=== PATIENT | female | born 1950 | race African-American/Black ===

== ENCOUNTER 2019-05-14 12:51 | Observation (INO) ==
[2019-05-14] MEDS ORDERED: LORazepam 2 MG/ML DISP.SYRIN IV ONE ×3 (12:53→13:07)
[2019-05-14] MEDS ORDERED: NORMAL SALINE 1,000 ML IV ONE (13:00)
[2019-05-14] MEDS ORDERED: LEVETIRACETAM IV ONE ×2 (13:04→13:15)
[2019-05-14] MEDS ORDERED: NORMAL SALINE IV ONE ×2 (13:04→13:15)
--- NOTE | 2019-05-14 13:08 | ERNOTE ---
Neuro HPI ER Record Date of Service: 05/14/19 Presenting Symptoms: other Time Seen by Provider: 05/14/19 12:51 Source: EMS Exam Limitations: clinical condition Immunizations: IMMUNIZATION HX Immunizations Up to Date Yes Allergies/Adverse Reactions: Allergies Allergy/AdvReac Type Severity Reaction Status Date / Time No Known Allergies Allergy Verified 05/14/19 16:21 Home Medications: HOME MEDICATIONS acetaminophen 325 mg tablet 650 mg PO Q4H PRN tab 04/30/19 [Last Taken Unknown] aspirin 81 mg chewable tablet 81 mg PO DAILY 04/30/19 [Last Taken Unknown] escitalopram oxalate 5 mg tablet 5 mg PO DAILY 04/30/19 [Last Taken Unknown] famotidine 20 mg tablet 20 mg PO BID 04/30/19 [Last Taken Unknown] folic acid 1 mg tablet 1 mg PO DAILY 04/30/19 [Last Taken Unknown] insulin glargine 100 unit/mL subcutaneous solution 9 unit SUBCUT QPM ml 04/30/19 [Last Taken Unknown] insulin lispro 100 unit/mL subcutaneous solution See Protocol SUBCUT ACHS PRN ml 04/30/19 [Last Taken Unknown] levetiracetam 750 mg tablet 1,500 mg PO BID tab 04/30/19 [Last Taken Unknown] lisinopril 10 mg tablet 10 mg PO DAILY 04/30/19 [Last Taken Unknown] phenol 1.4 % mucosal aerosol spray 4 spray MUCOUS MEMBRANE Q4H PRN 04/30/19 [Last Taken Unknown] polyethylene glycol 3350 17 gram oral powder packet 17 g PO DAILY PRN 04/30/19 [Last Taken Unknown] thiamine HCl (vitamin B1) 50 mg tablet 50 mg PO DAILY 04/30/19 [Last Taken Unknown] trazodone 50 mg tablet 25 mg PO HS #30 tab 04/30/19 [Last Taken Unknown] sodium chloride 0.65 % nasal spray aerosol 1 spray SILVERIO BID PRN #15 ml 05/03/19 [Last Taken Unknown] - History of Present Illness Narrative: This patient is a 69-year-old female who arrived by ambulance from [facility] of the nursing homes. The initial call was a stroke. It sounds more like she is having seizures. She has had a stroke in the past and has a chronic left-sided residual. Apparently around 11 AM, she was noted to be having fixed gaze and leaning to the left. It sounds like she was having some jerking movements. When the paramedics arrived, she appeared to be having seizures. She received Valium 5 mg in route with improvement. She was noted to have some jerking on arrival. Review of Systems - Narrative Narrative: Unobtainable due to decreased level of responsiveness. Medical History (Last Reviewed 05/14/19 @ 13:41 by Marino Gilman MD) Altered mental status, unspecified Cardiomegaly Dementia Functional urinary incontinence Hyperlipemia Lack of coordination Muscle wasting and atrophy, not elsewhere classified, multiple sites Muscle weakness Osteoporosis Personal history of (healed) traumatic fracture Repeated falls Seizure TIA (transient ischemic attack) Type 2 diabetes mellitus Surgical History: Surgical History (Last Reviewed 05/14/19 @ 13:41 by Marino Gilman MD) Hx of brain surgery Family History: Family History (Last Reviewed 05/14/19 @ 16:20 by Gustavo Turner, RN) Other No pertinent family history Social History: (Last Reviewed 05/14/19 @ 16:20 by Gustavo Turner, RN) Social History: senior care: Yes senior care comment: [facility] Physical Exam - Physical Exam General Appearance: Present: other - Ensure she arrived on the cart. She had rhythmic movement of the left lower extremity and left neck. She was leaning to the left. She does not respond to verbal or painful stimuli. Head Exam: Present: normal inspection, no evidence of injury Ears, Nose, Throat: Present: normal ENT inspection Neck: Present: normal inspection, supple Respiratory: Present: no respiratory distress, normal breath sounds, lungs clear Cardiovascular/Chest: Present: no murmur, tachycardia Gastrointestinal/Abdominal: Present: soft, no organomegaly Extremity Exam: Present: other - No evidence of acute injury. Neurological Exam: Present: other - Ensure she arrived on the cart. She had rhythmic movement of the left lower extremity and left neck. She was leaning to the left. She does not respond to verbal or painful stimuli. DTR: N=norm/NB=norm/brisk/A=abs/DD=dull/dimin/HC=hyperactive: Knee (R): Normal, Knee (L): Absent Skin Exam: Present: normal color, warm/dry Progress - Date and Time Seen: Date and Time: 05/14/19 13:59 Seizure activity has resolved. 05/15/19 07:[address] and labs were back, I spoke with Dr. Hoover. She asked that I make sure the patient's family was okay with the patient being here where there is no neuro. The daughter came back at that time. We discussed admission here versus transferring the patient. She is said that since the patient had quit seizing and seems stable at this time, she would be okay with the patient staying here and did not want transfer. Dr. Hoover was then informed of that conversation and accepted the patient. - Results and Orders Patient's Lab Results:: I have reviewed the patient's lab results. Results and Orders: Laboratory Tests 05/14/19 13:48 WBC 8.0 RBC 4.80 Hgb 14.7 Hct 44.5 MCV 92.7 MCH 30.6 MCHC 33.0 RDW 11.9 Plt Count 169 MPV 10.2 Immature Gran % (Auto) 0.20 Immature Gran # (Auto) 0.02 Neutrophils % 61.9 Lymphocytes % 27.7 Monocytes % 8.2 Eosinophils % 1.5 Basophils % 0.5 Nucleated RBC % 0.0 Neutrophils # 5.0 Lymphocytes # 2.22 Monocytes # 0.7 Eosinophils # 0.1 Absolute Basophils 0.0 Laboratory Tests 05/14/19 05/14/19 13:48 13:48 WBC 8.0 Hgb 14.7 Hct 44.5 Plt Count 169 Sodium 138 Potassium 3.6 Chloride 104 Carbon Dioxide 28.3 Anion Gap 9.3 BUN 16 Creatinine 0.58 Est GFR (Non-Af Amer) 133 H D Random Glucose 133 H Calcium 9.6 Calcium Adj for Albumin 9.9 Total Bilirubin 0.6 AST 124 H ALT 108 H Alkaline Phosphatase 139 Total Protein 7.5 Albumin 3.2 L - Vital Signs Patient's Vital Signs:: I have reviewed the patient's vital signs. Vital Signs: Vital Signs 05/14/19 12:54 Temperature 36.3 C Pulse Rate 97 Respiratory Rate 15 Blood Pressure 118/81 O2 Sat by Pulse Oximetry 96 - X-Ray X-Ray #1 X-Ray: chest Interpretation: Reviewed by me X-ray Comments: Chest Single View *: Hypoinflated lungs. No definite consolidation. Pulmonary vasculature is normal. No pneumothorax or pleural fluid collections apparent. Cardiac size within normal limits. Mild tortuosity of the thoracic aorta, stable. Trachea is in normal position given patient positioning. Osseous structures are grossly intact. IMPRESSION: 1. Hypoventilatory changes. 2. No focal acute finding. Electronically signed by Lauren Boyle M.D.. - CT/Ultrasound CT/Ultrasound Narrative: CT Head W/O *: Age-related cortical atrophy and periventricular white matter chronic ischemic changes are present. Intracranial atherosclerotic calcifications noted. No acute intracranial hemorrhage. No midline shift or herniation. There is an area of encephalomalacia at the right parietal lobe, best seen on series 3 image 22, which remain stable. No obvious soft tissue swelling or scalp hematoma noted. Skull grossly intact, without signs of depressed skull fracture. Patient has surgical changes of likely a right frontal natty hole placement as well as right parietal/occipital region craniotomy. Visualized portions of the paranasal sinuses are clear. Mastoid air cells are grossly clear. IMPRESSION: 1. No acute intracranial hemorrhage or mass effect. 2. Additional comments as above. Electronically signed by Lauren Boyle M.D.. - Progress/Reassessment Chief Complaint: Seizure Activity Departure Clinical Impression: Status epilepticus - Departure Disposition: Still a patient Condition: Fair
[2019-05-14 13:50] LABS: Hematocrit 44.5 % (37.0-47.0); Hemoglobin 14.7 gm/dL (12.5-16.0); Mean Cell Volume 92.7 fl (78-100); Mean Corpuscular Hemoglobin 30.6 pg (27-31); Mean Platelet Volume 10.2 fl (8-12.5); Neutrophil % 61.9 % (42-75.0); Platelet Count 169 K/mm3 (150-450); Red Cell Distribution Width 11.9 % (11.5-14.0)
[2019-05-14 14:08] LABS: Albumin * 3.2 gm/dl (3.4-5.0); Anion Gap 9.3 mmol/L (6.8-13.8); BUN/Creatinine Ratio 27.6 (9.0-21.6); Bilirubin, Total 0.6 mg/dL (0.0-1.1); Ca. Corrected For Albumin 9.9 mg/dL (8.4-10.2); Calcium * 9.6 mg/dL (7.9-10.9); Carbon Dioxide 28.3 mmol/L (24-32.6); Potassium 3.6 mmol/L (3.4-4.6); Total Protein 7.5 gm/dL (6.2-8.2)
--- NOTE | 2019-05-14 16:18 | HP ---
Chief Complaint - Chief Complaint Date of Service: 05/14/19 Time of Service: 16:13 Chief Complaint: seizure History of Present Illness: Patient is not awake for exam. History obtained from ED notes and from her nurse at [facility]. She has been refusing meds and glucose checks, and did not take her keppra on 05/09 or 05/13. She seemed to be leaning to the left today, and was observed shaking. Staff there felt like her heart rate was irregular, and her pupils were fixed. In the ED, more seizure like activity was Medical History (Last Reviewed 05/14/19 @ 16:20 by Gustavo Turner, RN) Diabetes mellitus Dysphagia Epilepsy GERD (gastroesophageal reflux disease) Hx of hepatitis C Hx of primary hypertension Altered mental status, unspecified Cardiomegaly Dementia Functional urinary incontinence Hyperlipemia Lack of coordination Muscle wasting and atrophy, not elsewhere classified, multiple sites Muscle weakness Osteoporosis Personal history of (healed) traumatic fracture Repeated falls Seizure TIA (transient ischemic attack) Type 2 diabetes mellitus Surgical History: Surgical History (Last Reviewed 05/14/19 @ 16:20 by Gustavo Turner, SHANNA) Hx of brain surgery Family History: Family History (Last Reviewed 05/14/19 @ 16:20 by Gustavo Turner, RN) Other No pertinent family history Social History: (Last Reviewed 05/14/19 @ 16:20 by Gustavo Turner, RN) Social History: residential: Yes residential comment: [facility] Review Of Systems (GEN) - Review of Systems Additional Comments: Unable to obtain ROS due to patient's condition Immunizations: IMMUNIZATION HX Immunizations Up to Date Yes Allergies/Adverse Reactions: Allergies Allergy/AdvReac Type Severity Reaction Status Date / Time No Known Allergies Allergy Verified 05/14/19 16:21 Home Medications: HOME MEDICATIONS acetaminophen 325 mg tablet 650 mg PO Q4H PRN tab 04/30/19 [Last Taken Unknown] aspirin 81 mg chewable tablet 81 mg PO DAILY 04/30/19 [Last Taken Unknown] escitalopram oxalate 5 mg tablet 5 mg PO DAILY 04/30/19 [Last Taken Unknown] famotidine 20 mg tablet 20 mg PO BID 04/30/19 [Last Taken Unknown] folic acid 1 mg tablet 1 mg PO DAILY 04/30/19 [Last Taken Unknown] insulin glargine 100 unit/mL subcutaneous solution 9 unit SUBCUT QPM ml 04/30/19 [Last Taken Unknown] insulin lispro 100 unit/mL subcutaneous solution See Protocol SUBCUT ACHS PRN ml 04/30/19 [Last Taken Unknown] levetiracetam 750 mg tablet 1,500 mg PO BID tab 04/30/19 [Last Taken Unknown] lisinopril 10 mg tablet 10 mg PO DAILY 04/30/19 [Last Taken Unknown] phenol 1.4 % mucosal aerosol spray 4 spray MUCOUS MEMBRANE Q4H PRN 04/30/19 [Last Taken Unknown] polyethylene glycol 3350 17 gram oral powder packet 17 g PO DAILY PRN 04/30/19 [Last Taken Unknown] thiamine HCl (vitamin B1) 50 mg tablet 50 mg PO DAILY 04/30/19 [Last Taken Unknown] trazodone 50 mg tablet 25 mg PO HS #30 tab 04/30/19 [Last Taken Unknown] sodium chloride 0.65 % nasal spray aerosol 1 spray SILVERIO BID PRN #15 ml 05/03/19 [Last Taken Unknown] Exam - Exam Vital Signs: Vital Signs - Last Taken Temp 36.9 C 05/14/19 15:30 Pulse 78 05/14/19 15:30 Resp 15 05/14/19 15:30 BP 161/90 H 05/14/19 15:30 Pulse Ox 98 05/14/19 15:30 Constitutional: Present: No distress, Elderly Respiratory: Present: lungs clear, normal breath sounds Cardiovascular/Chest: Present: regular rate, rhythm Abdomen: Present: Normal bowel sounds, soft Extremity: Absent: lower extremity edema Diagnostic Studies: Abnormal Lab Results 05/14/19 Range/Units 13:48 Est GFR (Non-Af Amer) 133 H D (60-130) mL/min BUN/Creatinine Ratio 27.6 H (9.0-21.6) Random Glucose 133 H (70-110) mg/dL AST 124 H (0-48) U/L ALT 108 H (19-67) U/L Albumin 3.2 L (3.4-5.0) gm/dl Laboratory Results WBC 8.0 K/mm3 (4.0-10.5) 05/14/19 13:48 RBC 4.80 M/mm3 (4.2-5.4) 05/14/19 13:48 Hgb 14.7 gm/dL (12.5-16.0) 05/14/19 13:48 Hct 44.5 % (37.0-47.0) 05/14/19 13:48 MCV 92.7 fl (78-100) 05/14/19 13:48 MCH 30.6 pg (27-31) 05/14/19 13:48 MCHC 33.0 g/dl (32-36) 05/14/19 13:48 RDW 11.9 % (11.5-14.0) 05/14/19 13:48 Plt Count 169 K/mm3 (150-450) 05/14/19 13:48 MPV 10.2 fl (8-12.5) 05/14/19 13:48 Immature Gran % (Auto) 0.20 % (0.001-0.429) 05/14/19 13:48 Immature Gran # (Auto) 0.02 K/mm3 (0.000-0.0310) 05/14/19 13:48 Neutrophils % 61.9 % (42-75.0) 05/14/19 13:48 Lymphocytes % 27.7 % (20-51) 05/14/19 13:48 Monocytes % 8.2 % (0.0-9) 05/14/19 13:48 Eosinophils % 1.5 % (0.0-3.0) 05/14/19 13:48 Basophils % 0.5 % (0.0-1.0) 05/14/19 13:48 Nucleated RBC % 0.0 k/mm3 (0-1) 05/14/19 13:48 Neutrophils # 5.0 K/mm3 (1.3-6.0) 05/14/19 13:48 Lymphocytes # 2.22 k/mm3 (1.5-3.5) 05/14/19 13:48 Monocytes # 0.7 k/mm3 (0.0-1.0) 05/14/19 13:48 Eosinophils # 0.1 k/mm3 (0.0-0.7) 05/14/19 13:48 Absolute Basophils 0.0 k/mm3 (0.0-0.1) 05/14/19 13:48 Sodium 138 mmol/L (132-142) 05/14/19 13:48 Plasma Sodium 139 mmol/L (130-142) 05/14/19 13:48 Potassium 3.6 mmol/L (3.4-4.6) 05/14/19 13:48 Chloride 104 mmol/L (97-106) 05/14/19 13:48 Carbon Dioxide 28.3 mmol/L (24-32.6) 05/14/19 13:48 Anion Gap 9.3 mmol/L (6.8-13.8) 05/14/19 13:48 BUN 16 mg/dL (3-23) 05/14/19 13:48 Creatinine 0.58 mg/dL (0.4-1.4) 05/14/19 13:48 Est GFR (Non-Af Amer) 133 mL/min (60-130) H D 05/14/19 13:48 BUN/Creatinine Ratio 27.6 (9.0-21.6) H 05/14/19 13:48 Random Glucose 133 mg/dL (70-110) H 05/14/19 13:48 Calcium 9.6 mg/dL (7.9-10.9) 05/14/19 13:48 Calcium Adj for Albumin 9.9 mg/dL (8.4-10.2) 05/14/19 13:48 Total Bilirubin 0.6 mg/dL (0.0-1.1) 05/14/19 13:48 AST 124 U/L (0-48) H 05/14/19 13:48 ALT 108 U/L (19-67) H 05/14/19 13:48 Alkaline Phosphatase 139 U/L (50-170) 05/14/19 13:48 Total Protein 7.5 gm/dL (6.2-8.2) 05/14/19 13:48 Albumin 3.2 gm/dl (3.4-5.0) L 05/14/19 13:48 Assessment/Plan - Assessment/Plan (1) Seizure disorder Assessment: Patient had been refusing her medications, and did not take her 1500 mg keppra twice in the last week, which likely precipitated these seizures. 25 mg trazodone was also recently restarted, which could be the source. If her previous dose of keppra is resumed on a regular basis and she is still having seizures, then will need to DC the trazodone. She received 3 doses of 1 mg ativan in the ED, and is sleeping for my exam. Will need to hold her meds until she is awake, and check a bedside swallow study. If she continues to have se izure activity overnight, will check EEG in the morning. Will give 1 mg ativan prn for prolonged seizure activity longer than 1 minute. If she does not have further seizures and has returned to baseline mentation, could potentially DC tomorrow. Problem: Chronic (2) Diabetes mellitus Assessment: Glucose was in the 100's on admission. She has been refusing glucose checks at [facility], but has had glucose as high as the 400's. She does not have an anion gap or reduced CO2 today, so uncontrolled DM is not a likely source of her seizure onset. Will hold her lantus while she is NPO. Problem: Chronic (3) Dementia Assessment: She is full code per nursing staff at [facility], and will need to verify this with her daughter. She has been difficult to manage at that facility, and she may be better suited for a dementia facility after DC. Will appreciate the assistance of the caseworker regarding this concern. She had been wandering the halls overnight, and 25 mg trazodone was started. This medication was on her med list previously, but not carried through with subsequent medication reconciliations. Problem: Chronic (4) Essential hypertension Assessment: Currently uncontrolled. She's been refusing meds at the nursing facility. Will give IV labetalol and gradually reduce her BP. Will need to use IV options until she is able to swallow. There is concern for underlying process, since her BP is elevated despite several ativan doses, and her somnolence. Nothing has thus far been discovered with workup completed in the ED. Problem: Chronic (5) Elevated transaminase level Assessment: AST and ALT were similarly mildly elevated back in January. Unsure what her alcohol use history is, but she's not been consuming recently. Her body habitus makes NAFLD less likely. Can obtain hepatitis panel if family wishes. Problem: Acute
[2019-05-14] MEDS ORDERED: LABETALOL HCL 5 MG/ML VIAL IV ONE (16:22)
--- NOTE | 2019-05-14 19:19 | DS ---
(1) Seizure disorder Problem: Chronic (2) Diabetes mellitus Problem: Chronic (3) Dementia Problem: Chronic (4) Essential hypertension Problem: Chronic (5) Elevated transaminase level Problem: Acute Date of Discharge:: 05/14/19 Description of Stay: Patient with PMHx of dementia, seizure disorder, previous brain hemorrhage requ iring natty holes, DM, HTN and has been a resident of the [facility] for approximately 3 months. Patient is not awake for exam. History obtained from ED notes and from her nurse at [facility]. She has been refusing meds and glucose checks, and did not take her keppra on 05/09 or 05/13. She seemed to be leaning to the left today, and was observed shaking. Staff there felt like her heart rate was irregular, and her pupils were fixed. Procedures Performed: none Results and Findings: Lab Pending Results 05/14/19 13:48: WBC 8.0, RBC 4.80, Hgb 14.7, Hct 44.5, MCV 92.7, MCH 30.6, MCHC 33.0, RDW 11.9, Plt Count 169, MPV 10.2, Immature Gran % (Auto) 0.20, Immature Gran # (Auto) 0.02, Neutrophils % 61.9, Lymphocytes % 27.7, Monocytes % 8.2, Eosinophils % 1.5, Basophils % 0.5, Nucleated RBC % 0.0, Neutrophils # 5.0, Lymphocytes # 2.22, Monocytes # 0.7, Eosinophils # 0.1, Absolute Basophils 0.0 05/14/19 13:48: Sodium 138, Plasma Sodium 139, Potassium 3.6, Chloride 104, Carbon Dioxide 28.3, Anion Gap 9.3, BUN 16, Creatinine 0.58, Est GFR (Non-Af Amer) 133 H D, BUN/Creatinine Ratio 27.6 H, Random Glucose 133 H, Calcium 9.6, Calcium Adj for Albumin 9.9, Total Bilirubin 0.6, AST 124 H, ALT 108 H, Alkaline Phosphatase 139, Total Protein 7.5, Albumin 3.2 L Disposition: Home self-care Condition: Stable Referrals: Zak Whitehead MD [Primary Care Provider] - Complete Home Medications List: Complete Home Medication List: acetaminophen 325 mg tablet 650 mg PO Q4H PRN tab 04/30/19 aspirin 81 mg chewable tablet 81 mg PO DAILY 04/30/19 escitalopram oxalate 5 mg tablet 5 mg PO DAILY 04/30/19 famotidine 20 mg tablet 20 mg PO BID 04/30/19 folic acid 1 mg tablet 1 mg PO DAILY 04/30/19 insulin glargine 100 unit/mL subcutaneous solution 9 unit SUBCUT QPM ml 04/30/19 insulin lispro 100 unit/mL subcutaneous solution See Protocol SUBCUT ACHS PRN ml 04/30/19 levetiracetam 750 mg tablet 1,500 mg PO BID tab 04/30/19 lisinopril 10 mg tablet 10 mg PO DAILY 04/30/19 phenol 1.4 % mucosal aerosol spray 4 spray MUCOUS MEMBRANE Q4H PRN 04/30/19 polyethylene glycol 3350 17 gram oral powder packet 17 g PO DAILY PRN 04/30/19 thiamine HCl (vitamin B1) 50 mg tablet 50 mg PO DAILY 04/30/19 trazodone 50 mg tablet 25 mg PO HS #30 tab 04/30/19 sodium chloride 0.65 % nasal spray aerosol 1 spray SILVERIO BID PRN #15 ml 05/03/19
--- NOTE | 2019-05-14 19:19 | DS ---
Transfer Discharge Summary - Diagnosis(s)/Problems (1) Seizure disorder Problem: Chronic (2) Diabetes mellitus Problem: Chronic (3) Dementia Problem: Chronic (4) Essential hypertension Problem: Chronic (5) Elevated transaminase level Problem: Acute - Course Description of Stay: Patient with PMHx of dementia, seizure disorder, previous brain hemorrhage requiring natty holes, DM, HTN and has been a resident of the [facility] for approximately 3 months. History obtained from ED notes and from her nurse at [facility]. She has been refusing meds and glucose checks, and did not take her keppra on 05/09 or 05/13. She seemed to be leaning to the left today, and was observed shaking. Staff there felt like her heart rate was irregular, and her pupils were fixed. She was sent to the ED, where further seizure activity was witnessed. She was given 3 doses of 1 mg ativan, and 2,000 mg keppra and admitted to our facility. No acute findings on CT head, and no significant electrolyte abnormalities. AST and ALT were mildly elevated, similar to levels from January. Her daughter reports her dementia source isn't clear. Her BP was elevated to 190's/90's after the ativan while she was somnolent, and she was given 10 mg IV labetalol. After admission, her daughter then felt like her moth er should be in a facility with a neurologist. [facility] was contacted, and Dr. Jurado accepted admission. She was transferred there on the evening of admission, 05/14/19. Procedures Performed: none - Results and Findings Results and Findings: Laboratory Results - last 24 hr 05/14/19 05/14/19 13:48 13:48 WBC 8.0 RBC 4.80 Hgb 14.7 Hct 44.5 MCV 92.7 MCH 30.6 MCHC 33.0 RDW 11.9 Plt Count 169 MPV 10.2 Immature Gran % (Auto) 0.20 Immature Gran # (Auto) 0.02 Neutrophils % 61.9 Lymphocytes % 27.7 Monocytes % 8.2 Eosinophils % 1.5 Basophils % 0.5 Nucleated RBC % 0.0 Neutrophils # 5.0 Lymphocytes # 2.22 Monocytes # 0.7 Eosinophils # 0.1 Absolute Basophils 0.0 Sodium 138 Plasma Sodium 139 Potassium 3.6 Chloride 104 Carbon Dioxide 28.3 Anion Gap 9.3 BUN 16 Creatinine 0.58 Est GFR (Non-Af Amer) 133 H D BUN/Creatinine Ratio 27.6 H Random Glucose 133 H Calcium 9.6 Calcium Adj for Albumin 9.9 Total Bilirubin 0.6 AST 124 H ALT 108 H Alkaline Phosphatase 139 Total Protein 7.5 Albumin 3.2 L - Medications Medications: Active Medications Sodium Chloride (Sodium Chloride 0.9%) 1,000 mls @ 75 mls/hr IV .[id number] ONE Stop: 05/15/19 02:19 Last Admin: 05/14/19 13:35 Dose: 75 mls/hr Documented by: Discontinued Medications Levetiracetam 20,000 mg/ (Sodium Chloride) 300 mls @ 400 mls/hr IV ONCE ONE Stop: 05/14/19 13:19 Last Admin: 05/14/19 13:30 Dose: Not Given Documented by: Levetiracetam 2,000 mg/ Sodium (Chloride) 120 mls @ 400 mls/hr IV ONCE ONE Stop: 05/14/19 13:32 Last Infusion: 05/14/19 13:38 Dose: Infused Documented by: Labetalol HCl (Trandate) 10 mg IV ONCE ONE Stop: 05/14/19 16:23 Last Admin: 05/14/19 16:47 Dose: 10 mg Documented by: Lorazepam (Ativan) 1 mg IV ONCE ONE Stop: 05/14/19 12:54 Last Admin: 05/14/19 12:56 Dose: 1 mg Documented by: Lorazepam (Ativan) 1 mg IV ONCE ONE Stop: 05/14/19 13:06 Last Admin: 05/14/19 13:06 Dose: 1 mg Documented by: Lorazepam (Ativan) 1 mg IV ONCE ONE Stop: 05/14/19 13:08 Last Admin: 05/14/19 13:13 Dose: 1 mg Documented by: - Disposition Disposition: Short Term Hospital Inpatient Condition: Fair Discharge Date: 05/14/19
[2019-05-14 21:50] VITALS: BP 160/72
== END 2019-05-14 19:49 | disposition short-term general hospital (02) ==
LOC: MS 12:51 → ER 12:51 → MS 15:30
PROVIDERS: ADMIT Family Medicine; ATTEND Family Medicine
CPT/HCPCS: 36415; 70450; 71010; 71045; 80053; 85025; 93005; 96365; 96375; 99285